=== PATIENT | female | born 1940 | race Caucasian/White ===

== ENCOUNTER → 2018-12-23 | Outpatient (CLI) | payer MEDICARE, OTHER | END | disposition home or self-care (01) | LOC: HKI 14:43 | DX: S82.002D Unspecified fracture of left patella, subsequent encounter for closed fracture with routine healing (principal); X58.XXXD Exposure to other specified factors, subsequent encounter; E03.9 Hypothyroidism, unspecified; M81.0 Age-related osteoporosis without current pathological fracture; Z85.3 Personal history of malignant neoplasm of breast; Z90.710 Acquired absence of both cervix and uterus | CPT/HCPCS: 73560; 73560-LT ==

== ENCOUNTER → 2019-01-09 | Outpatient (CLI) | payer MEDICARE, OTHER | END | disposition home or self-care (01) | LOC: HKI 14:02 | DX: S82.002D Unspecified fracture of left patella, subsequent encounter for closed fracture with routine healing (principal); X58.XXXD Exposure to other specified factors, subsequent encounter | CPT/HCPCS: 73560; 73560-LT ==

== ENCOUNTER 2019-03-31 20:22 | Emergency (ER) | payer MEDICARE, OTHER ==
[2019-03-31] MEDS: IBUPROFEN 800 MG TAB PO (20:52)
== END 2019-03-31 23:50 | disposition home or self-care (01) ==
LOC: E/R 20:22
DX: S00.83XA Contusion of other part of head, initial encounter (principal); S80.02XA Contusion of left knee, initial encounter; W01.0XXA Fall on same level from slipping, tripping and stumbling without subsequent striking against object, initial encounter; Y92.9 Unspecified place or not applicable
CPT/HCPCS: 70450; 73562; 99284-25